=== PATIENT | female | born 1995 | race Two or more races ===

== ENCOUNTER 2022-05-24 20:17 | Emergency (ER) | payer MEDICAID, OTHER ==
[~2022-05-24] VITALS: Ht 160 cm; Wt 81.0 kg
[2022-05-24 20:43] VITALS: BP 122/76
== END 2022-05-24 23:15 | disposition left against medical advice (07) ==
LOC: ER 20:17
DX: M79.674 Pain in right toe(s) (principal); Z53.21 Procedure and treatment not carried out due to patient leaving prior to being seen by health care provider
CPT/HCPCS: 73660